=== PATIENT | male | born 1985 | race African-American/Black ===

== ENCOUNTER 2016-08-13 20:29 | Emergency (ER) | payer SELFPAY ==
[~2016-08-13] VITALS: Ht 167.6 cm; Wt 68.0 kg
[~2016-08-13 20:29] MED LIST: AMOX500C PO; HYDR-971 PO
[2016-08-13 20:50] VITALS: BP 139/70
--- NOTE | 2016-08-13 21:10 | PHYS DOC ---
Past Medical History Past Medical History: Other Additional Past Medical Histor: HERNIA Past Surgical History: Appendectomy, Other Additional Past Surgical Histo: right TESTICLE REMOVED Alcohol Use: None Drug Use: Marijuana Social History Narrative: last use 3 days ago Adult General Chief Complaint Chief Complaint: OTHER COMPLAINTS [facility] Patient is a 30 year old male presents emergency room with complaint of ongoing problems with a known left inguinal hernia. Patient states that he strained himself last week at work when he was lifting up a heavy bag of trash. Patient was last seen here in February for the same thing. Patient states he's hasn't to be seen by general surgeon because he is afraid of surgery. He is requesting a lifting restriction be documented here today to take back to his employer. He denies abdominal pain. He denies rectal bleeding. He denies nausea or vomiting or constipation. Review of Systems Review of Systems Constitutional: Denies fever or chills [] Eyes: Denies change in visual acuity, redness, or eye pain [] HENT: Denies nasal congestion or sore throat [] Respiratory: Denies cough or shortness of breath [] Cardiovascular: No additional information not addressed in HPI [] GI: Denies abdominal pain, nausea, vomiting, bloody stools or diarrhea [] : Denies dysuria or hematuria [] Musculoskeletal: Denies back pain or joint pain [] Integument: Denies rash or skin lesions [] Neurologic: Denies headache, focal weakness or sensory changes [] Endocrine: Denies polyuria or polydipsia [] Allergies Allergies Allergies Coded Allergies Type Severity Reaction Last Updated Verified No Known Drug Allergies 09/19/15 No Physical Exam Physical Exam Constitutional: Well developed, well nourished, no acute distress, non-toxic appearance. [] HENT: Normocephalic, atraumatic, bilateral external ears normal, oropharynx moist, no oral exudates, nose normal. [] Eyes: PERRLA, EOMI, conjunctiva normal, no discharge. [] Neck: Normal range of motion, no tenderness, supple, no stridor. [] Cardiovascular:Heart rate regular rhythm, no murmur [] Lungs & Thorax: Bilateral breath sounds clear to auscultation [] Abdomen: Bowel sounds normal, soft, no tenderness, no masses, no pulsatile masses. Patient was examined while standing. Patient has a soft, reducible LEFT inguinal hernia. Skin: Warm, dry, no erythema, no rash. [] Back: No tenderness, no CVA tenderness. [] Extremities: No tenderness, no cyanosis, no clubbing, ROM intact, no edema. [] Neurologic: Alert and oriented X 3, normal motor function, normal sensory function, no focal deficits noted. [] Psychologic: Affect normal, judgement normal, mood normal. [] Current Patient Data Vital Signs Vital Signs Date Time Temp Pulse Resp B/P Pulse Ox O2 Delivery O2 Flow Rate FiO2 08/13/16 20:50 98.1 50 16 99 Room Air 98.1 EKG EKG [] Radiology/Procedures Radiology/Procedures [] Course & Med Decision Making Course & Med Decision Making Pertinent Labs and Imaging studies reviewed. (See chart for details) [] Upon discharge, patient requested pain medicine to the nurse. I explained to the patient that he needs to follow-up with the surgeon at [facility] or [facility] to discuss further management of his hernia. Her reflective back to when he was seen here in February this past year and he still had not pursued any type of intervention or management. Dragon Disclaimer Dragon Disclaimer This electronic medical record was generated, in whole or in part, using a voice recognition dictation system. Departure Departure Impression: Primary Impression: Inguinal hernia Disposition: 01 HOME, SELF-CARE Condition: STABLE Referrals: NO PCP (PCP) Patient Instructions: Inguinal Hernia, Adult, Care After Additional Instructions: 1. Review the discharge instructions provided for self-care and reasons to return the emergency department. 2. Sure to call [facility] at [phone] or [facility] at [phone] and request an appointment to see a general surgeon to discuss treatment of your inguinal hernia. ROBBIE MILLAN Aug 13, 2016 21:10
== END 2016-08-13 21:15 | disposition home or self-care (01) ==
LOC: ER 20:29
DX: K40.90 Unilateral inguinal hernia, without obstruction or gangrene, not specified as recurrent (principal)
CPT/HCPCS: 99281

== ENCOUNTER 2018-02-04 22:01 | Emergency (ER) | payer SELFPAY ==
[~2018-02-04] VITALS: Ht 165.1 cm; Wt 63.5 kg
[~2018-02-04 22:01] MED LIST changes: +OXYC-323 PO
[2018-02-04 22:03] VITALS: BP 135/64
[2018-02-04] MEDS ORDERED: AMOX500C PO (23:24)
--- NOTE | 2018-02-04 23:25 | PHYS DOC ---
Past Medical History Past Medical History: Other Additional Past Medical Histor: HERNIA Past Surgical History: Appendectomy, Oophorectomy Additional Past Surgical Histo: right TESTICLE REMOVED Alcohol Use: None Drug Use: Marijuana Adult General Chief Complaint Chief Complaint: EARACHE/EAR PAIN HPI HPI Patient is a 32 year old male who presents with an earache to the left ear that has been going on for a week. The patient has a cotton puff in the ear. He has not taken anything for pain. He denies fever, sore throat or runny nose. Review of Systems Review of Systems Constitutional: Denies fever or chills [] Eyes: Denies change in visual acuity, redness, or eye pain [] HENT: See history of present illness Respiratory: Denies cough or shortness of breath [] Cardiovascular: No additional information not addressed in HPI [] Neurologic: Denies headache, focal weakness or sensory changes [] Endocrine: Denies polyuria or polydipsia [] All other systems were reviewed and found to be within normal limits, except as documented in this note. Current Medications Current Medications Current Medications Medications (Trade) Dose Ordered Sig/Peyman Start Time Stop Time Status Last Admin Dose Admin Lidocaine HCl (Xylocaine-Mpf 2% Vial) 4 ml 1X ONCE 02/04/18 23:15 02/04/18 23:16 DC 02/04/18 23:30 1 ML Allergies Allergies Allergies Coded Allergies Type Severity Reaction Last Updated Verified No Known Drug Allergies 05/18/17 No Physical Exam Physical Exam Constitutional: Well developed, well nourished, no acute distress, non-toxic appearance. [] HENT: Normocephalic, atraumatic, right tympanic membrane is normal, left tympanic membrane is erythematous and bulging, oropharynx moist, no oral exudates, nose normal. [] Eyes: PERRLA, EOMI, conjunctiva normal, no discharge. [] Neck: Normal range of motion, no tenderness, supple, no stridor. [] Cardiovascular:Heart rate regular rhythm, no murmur [] Lungs & Thorax: Bilateral breath sounds clear to auscultation [] Neurologic: Alert and oriented X 3, normal motor function, normal sensory function, no focal deficits noted. [] Psychologic: Affect normal, judgement normal, mood normal. [] Current Patient Data Vital Signs Vital Signs Date Time Temp Pulse Resp B/P (MAP) Pulse Ox O2 Delivery O2 Flow Rate FiO2 02/04/18 22:03 98.1 85 20 135/64 (87) 98 Room Air 98.1 EKG EKG [] Radiology/Procedures Radiology/Procedures [] Course & Med Decision Making Course & Med Decision Making Pertinent Labs and Imaging studies reviewed. (See chart for details) []A small amount of lidocaine was instilled in the ear for pain control. Dragon Disclaimer Dragon Disclaimer This electronic medical record was generated, in whole or in part, using a voice recognition dictation system. Departure Departure Impression: Primary Impression: Ear infection Disposition: HOME, SELF-CARE Condition: STABLE Referrals: NO PCP (PCP) Patient Instructions: Otitis Media, Adult Additional Instructions: Take the antibiotic as prescribed. Follow-up with your primary care provider in 3 days if not improving or return to the emergency department if worsening. He may take ibuprofen or Tylenol for pain or fever. Scripts Amoxicillin (AMOXICILLIN) 500 Mg Capsule 2 CAP PO BID, #40 CAP Prov: SAVANAH CARRASQUILLO APRN 02/04/18 Attending Signature Attending Signature I have reviewed the PA/SEED EXPERT's note and plan of care. I was available for consultation as needed during the patient's visit in the emergency department. I agree with the clinical impression, plan, and disposition. SAVANAH CARRASQUILLO APRN Feb 04, 2018 23:25 BECKY STAUFFER DO Feb 08, 2018 05:52
[2018-02-04] MEDS: LIDOCAINE 2% PF 2ML VIAL. INJ ONE ×2 (23:30→23:40)
== END 2018-02-04 22:30 | disposition home or self-care (01) ==
LOC: ER 22:01
DX: H66.92 Otitis media, unspecified, left ear (principal); Z90.89 Acquired absence of other organs
CPT/HCPCS: 96372; 99283; J2001

== ENCOUNTER 2020-05-03 16:41 | Emergency (ER) | payer SELFPAY ==
[~2020-05-03 16:41] MED LIST changes: +HYDR-3164 PO; -HYDR-971 PO; -OXYC-323 PO; +OXYC1TAB15 PO
[2020-05-03 16:46] VITALS: BP 125/61
== END 2020-05-03 20:28 | disposition left against medical advice (07) ==
LOC: ER 16:41
DX: M54.5 Low back pain (principal); G89.11 Acute pain due to trauma; Z53.21 Procedure and treatment not carried out due to patient leaving prior to being seen by health care provider; W18.39XA Other fall on same level, initial encounter; Y93.89 Activity, other specified; Y92.89 Other specified places as the place of occurrence of the external cause; Y99.8 Other external cause status